=== PATIENT | female | born 1960 | race Caucasian/White ===

== ENCOUNTER 2020-12-22 07:52 | Emergency (ER) | payer MEDICARE, MEDICAID ==
[~2020-12-22] VITALS: Ht 162.6 cm; Wt 92.5 kg
[~2020-12-22 07:52] MED LIST: HYDR-826 PO
--- NOTE | 2020-12-22 08:09 | NUR ---
ERPA AT BEDSIDE FOR EVALUATION.
--- NOTE | 2020-12-22 08:15 | NUR ---
PATIENT WALKED BACK FROM TRIAGE WITH CHIEF C/O LOW BACK PAIN X2 WEEKS. PATIENT REPORTS PAIN RADIATES TO HER HIPS AND DOWN HER LEFT LEG. PATIENT REPORTS MUSCLE CRAMPS, WEAKNESS AND NUMBNESS IN HER LEFT LEG. PATIENT HAS LOWER BACK SURGERY 03/2019. MARTINA MONTGOMERY, CALL LIGHT WITHIN REACH.
[2020-12-22] MEDS ORDERED: HYDROmorphone 1 MG/ML, 1ML INJ ONE ×2 (08:23→10:30)
[2020-12-22] MEDS ORDERED: ONDANSETRON 2MG/ML, 2ML ONE (08:24)
[2020-12-22] MEDS ORDERED: SODIUM CHLORIDE FLUSH 10ML SYR IVF ONE (08:30)
[2020-12-22] MEDS ORDERED: ONDANSETRON 2MG/ML, 2ML IVPush ONE (08:30)
[2020-12-22] MEDS ORDERED: HYDROmorphone 1 MG/ML, 1ML INJ IV ONE ×2 (08:30→10:30)
--- NOTE | 2020-12-22 08:38 | NUR ---
22 GAUGE IV STARTED RIGHT AC, PATIENT MEDICATED PER eMAR.
--- NOTE | 2020-12-22 08:42 | NUR ---
PATIENT TO CT SCAN.
[2020-12-22] MEDS ORDERED: KETOROLAC 30 MG/1 ML ONE (09:14)
--- NOTE | 2020-12-22 09:28 | NUR ---
PATIENT MEDICATED PER eMAR, NADN, VSS, CALL LIGHT WITHIN REACH. WAITING FOR CT RESULTS.
[2020-12-22] MEDS ORDERED: KETOROLAC 30 MG/1 ML IVPush ONE (09:30)
--- NOTE | 2020-12-22 09:55 | NUR ---
ERPA AT BEDSIDE TO DISCUSS POC.
--- NOTE | 2020-12-22 10:15 | NUR ---
PATIENT AMBULATED TO BATHROOM WITH USE OF FRONT WHEEL WALKER AND CHECKER ASSISTANCE.
[2020-12-22 10:45] VITALS: BP 98/77
--- NOTE | 2020-12-22 10:46 | NUR ---
Patient given discharge instructions and prescription and they have confirmed that they understand the instructions. Patient stable and ambulatory with steady gait with use of front wheel walker to private vehicle, spouse driving.
== END 2020-12-22 10:23 | disposition home or self-care (01) ==
LOC: ED 09:35
DX: M51.16 Intervertebral disc disorders with radiculopathy, lumbar region (principal)
CPT/HCPCS: 72131; 96374; 96375; 96376; 99284; J1170; J1885; J2405

== ENCOUNTER 2020-12-27 07:26 | Emergency (ER) | payer MEDICARE, MEDICAID ==
[~2020-12-27] VITALS: Ht 160 cm; Wt 90.9 kg
--- NOTE | 2020-12-27 07:49 | NUR ---
Sherie mas in EDM - 12/27/20 at 0803 by WILMER PT AMBULATED TO BATHROOM, UPRIGHT STEADY GAIT. URINE SAMPLE COLLECTED AND SENT TO LAB. PT TOLLERATED ACTIVITY WELL, RTD TO ROOM W/O INCIDENT. VSS
--- NOTE | 2020-12-27 07:49 | NUR ---
PA AT BS. NAD NOTED. AT BS
[2020-12-27] MEDS ORDERED: ONDANSETRON 2MG/ML, 2ML IVPush ONE (08:00)
[2020-12-27] MEDS ORDERED: HYDROmorphone 1 MG/ML, 1ML INJ IV ONE (08:00)
[2020-12-27] MEDS ORDERED: SODIUM CHLORIDE FLUSH 10ML SYR IVF ONE (08:00)
[2020-12-27] MEDS ORDERED: ONDANSETRON 2MG/ML, 2ML ONE (08:09)
[2020-12-27] MEDS ORDERED: HYDROmorphone 1 MG/ML, 1ML INJ ONE ×2 (08:09→08:43)
[2020-12-27 08:30] LABS: BASOPHILS % (AUTO) 1 % (0-1); EOSINOPHILS % (AUTO) 2 % (1-7); LYMPHOCYTES % (AUTO) 31 % (22-44); MEAN CORPUSCULAR HEMOGLOBIN 32.9 pg (27.0-34.8); MEAN CORPUSCULAR HGB CONC 34.1 g/dL (32.4-35.8); MEAN PLATELET VOLUME 8.3 fL (7.4-10.4); MONOCYTES % (AUTO) 7 % (2-9); NEUTROPHILS % (AUTO) 59 % (42-75); PLATELET COUNT 283 x10^3/uL (130-400); RED BLOOD COUNT 4.89 x10^6/uL (3.82-5.3); RED CELL DISTRIBUTION WIDTH 14.5 % (9.6-15.2)
[2020-12-27 08:35] LABS: MD NO
[2020-12-27 08:42] LABS: ALANINE AMINOTRANSFERASE 26 U/L (12-78); ANION GAP 4 mmol/L (5-15); CALCIUM 8.9 mg/dL (8.5-10.1); CHLORIDE 105 mmol/L (98-107); CREATININE 0.94 mg/dL (0.55-1.02)
--- NOTE | 2020-12-27 08:42 | NUR ---
US IV ATTEMPT X 2, GOOD BLOOD RTN AND LABS DRAWN BUT NEITHER CATHETER WOUND ADVANCE INTO THE VEIN. DISCUSSED WITH CARLOS CHINCHILLA. PAIN MEDS CHANGED TO IM.
[2020-12-27] MEDS ORDERED: ONDANSETRON ODT 4 MG ONE (08:43)
[2020-12-27 08:44] LABS: ALKALINE PHOSPHATASE 85 U/L (45-117); BILIRUBIN,TOTAL 0.2 mg/dL (0.2-1.0); TOTAL PROTEIN 7.6 g/dL (6.4-8.2)
--- NOTE | 2020-12-27 08:44 | NUR ---
PT OOB TO BED SIDE COMMODE WITH MIN ASSIST. +VOID W/O DIFFICULTY AND RTD TO BED. CALL LIGHT W/I REACH.
--- NOTE | 2020-12-27 08:56 | NUR ---
PT TO MRI
[2020-12-27] MEDS ORDERED: HYDROmorphone 1 MG/ML, 1ML INJ IM ONE (09:00)
[2020-12-27] MEDS ORDERED: ONDANSETRON ODT 4 MG PO ONE (09:00)
--- NOTE | 2020-12-27 09:38 | NUR ---
PT BACK FROM MRI
--- NOTE | 2020-12-27 10:25 | NUR ---
ATTEMPTED TO CALL [facility], NO ANSWER, MESSAGE LEFT. DR DESAI INFORMED
--- NOTE | 2020-12-27 10:45 | NUR ---
DISCUSSED NEED FOR HOME HEALTH WITH KELLY JOSHI. KELLY TO SET UP AND WILL TALK WITH PT.
[2020-12-27 10:53] VITALS: BP 142/60
--- NOTE | 2020-12-27 10:55 | NUR ---
Patient/Caregiver given discharge instructions and they have confirmed that they understand the instructions. Patient ambulatory to wheelchair for discharge
== END 2020-12-27 10:56 | disposition home or self-care (01) ==
LOC: ED 07:43
DX: M51.36 Other intervertebral disc degeneration, lumbar region (principal); M54.16 Radiculopathy, lumbar region; G89.29 Other chronic pain
CPT/HCPCS: 36415; 72148; 80053; 85025; 96372; 99284; J1170; Q0162

== ENCOUNTER → 2021-01-24 | Outpatient (CLI) | payer MEDICARE, MEDICAID ==
[~2021-01-24] MED LIST changes: +ALPR1TAB2 PO; +LEVO25CA4 PO
== END | disposition home or self-care (01) ==
LOC: RAD 14:55
PROVIDERS: ATTEND Neurological Surgery
DX: M47.24 Other spondylosis with radiculopathy, thoracic region (principal)
CPT/HCPCS: 72146

== ENCOUNTER 2021-01-26 14:07 | Inpatient (IN) | payer MEDICARE, MEDICAID ==
[~2021-01-26] VITALS: Ht 160 cm; Wt 87.0 kg
[~2021-01-26 14:07] MED LIST changes: -LEVO25CA4 PO
--- NOTE | 2021-01-26 14:30 | NUR ---
Sent by Dr. Munson and Dr. Sargent for left low back and left leg pain, reports numbness and tingling for 7 weeks. Hx spinal fusion 2018.
--- NOTE | 2021-01-26 15:11 | NUR ---
REPORT RECIEVED FROM TREE HALLMAN
--- NOTE | 2021-01-26 15:20 | NUR ---
pt states 7/10 pain in pelvis and top of femur along with numbness at umbilicus. pt a&o, resps even and unlabored, cooperative and can speak in complete sentences.
[2021-01-26] MEDS ORDERED: FENTANYL PF 100 MCG/2ML IVPush ONE (16:04)
--- NOTE | 2021-01-26 16:06 | NUR ---
preceptor RN note: pt requesting pain medication prior to any additional imaging, MD Salcido notified. awaiting further orders.
[2021-01-26] MEDS ORDERED: FENTANYL PF 100 MCG/2ML ONE (16:16)
--- NOTE | 2021-01-26 16:45 | NUR ---
PRECEPTOR RN NOTE: XRAY CALLED TO COLLECT PT PT HAS BEEN MEDICATED FOR PAIN AND CONSENTS TO IMAGING.
--- NOTE | 2021-01-26 17:20 | NUR ---
IMAGING DELAYED D/T PT REQ FOR PAIN MEDICATION, THEN REQ TO AMBULATE TO BATHROOM UPON RADIOLOGY RETURN. PT AMBULATED TO BATHROOM WITH WALKER AND RN STANDBY ASSIST. PT NOW BACK IN BED, BP AND SPO2 MONITORS IN PLACE. PT REPORTS PAIN IMRPOVED S/P FENTANYL. PT A &O, RESPS EVEN AND UNLABORED. RADIOLOGY NOTIFIED TO COLLECT PT.
--- NOTE | 2021-01-26 17:33 | NUR ---
pt back from xray
--- NOTE | 2021-01-26 17:45 | NUR ---
pt states current pain level 6/10, tolerable. a&o x 4, resps even and unlabored, bp and spo2 monitors in place. nadn. pt upated with poc, agreeable to admit.
--- NOTE | 2021-01-26 17:55 | NUR ---
REPORT GIVEN TO VIANEY HALLMAN IN 628
--- NOTE | 2021-01-26 19:02 | NUR ---
PT A&O, RESPS EVEN AND UNLABORED. PT TRANSPORTED UP TO FLOOR WITHOUT INCIDENT. UPDATED WITH POC.
[2021-01-26 19:07] VITALS: BP 127/75
[2021-01-26] MEDS ORDERED: LEVO25CA4 PO (19:30)
[2021-01-26] MEDS ORDERED: DOCUSATE 100 MG CAPSULE PO PRN (21:00)
[2021-01-26] MEDS ORDERED: MELATONIN 5 MG TABLET PO PRN (21:00)
[2021-01-26] MEDS ORDERED: NICOTINE 21 MG/24 HR PATCH.TD24 TD ONE (21:00)
[2021-01-26] MEDS: OXYcodone/APAP 5/325MG TABLET PO PRN (21:35)
[2021-01-26] MEDS: KETOROLAC 30 MG/1 ML IV PRN (21:35)
[2021-01-26] MEDS: ENOXAPARIN 40 MG/0.4 ML SQ SCH (21:36)
[2021-01-27] MEDS: TEMAZEPAM 15 MG CAPSULE PO PRN (00:36)
[2021-01-27 01:00] VITALS: BP 93/64
[2021-01-27] MEDS: OXYcodone/APAP 5/325MG TABLET PO PRN ×5 (02:45→20:57)
[2021-01-27] MEDS: LIDODERM 5% PATCH TD PRN ×2 (02:46→21:03)
[2021-01-27] MEDS: KETOROLAC 30 MG/1 ML IV PRN ×3 (05:59→20:57)
[2021-01-27 06:01] LABS: BASOPHILS % (AUTO) 1 % (0-1); EOSINOPHILS % (AUTO) 4 % (1-7); LYMPHOCYTES % (AUTO) 40 % (22-44); MEAN CORPUSCULAR HEMOGLOBIN 32.7 pg (27.0-34.8); MEAN CORPUSCULAR HGB CONC 33.8 g/dL (32.4-35.8); MEAN PLATELET VOLUME 8.3 fL (7.4-10.4); MONOCYTES % (AUTO) 7 % (2-9); NEUTROPHILS % (AUTO) 48 % (42-75); PLATELET COUNT 239 x10^3/uL (130-400); RED BLOOD COUNT 4.69 x10^6/uL (3.82-5.3); RED CELL DISTRIBUTION WIDTH 14.4 % (9.6-15.2)
[2021-01-27 06:02] LABS: ANION GAP 8 mmol/L (5-15); CALCIUM 8.7 mg/dL (8.5-10.1); CHLORIDE 110 mmol/L (98-107); CREATININE 0.76 mg/dL (0.55-1.02)
[2021-01-27 06:05] LABS: MD NO
[2021-01-27 06:50] VITALS: BP 106/70
[2021-01-27] MEDS ORDERED: ONDANSETRON 2MG/ML, 2ML ONE (12:47)
[2021-01-27] MEDS: ONDANSETRON 2MG/ML, 2ML IVPush PRN (12:50)
[2021-01-27] MEDS ORDERED: ONDANSETRON 4 MG TABLET PO PRN (13:00)
[2021-01-27] MEDS ORDERED: BISACODYL 10 MG SUPP PR PRN (13:30)
[2021-01-27 14:45] VITALS: BP 144/76
[2021-01-27] MEDS: GABAPENTIN 100 MG CAPSULE PO SCH ×2 (15:12→20:56)
[2021-01-27 17:19] LABS: OCCULT BLOOD NEGATIVE (NEGATIVE)
[2021-01-27 20:51] VITALS: BP 137/84
[2021-01-27] MEDS: SENNOSIDES 8.6 MG TABLET PO SCH (20:57)
[2021-01-27] MEDS: ENOXAPARIN 40 MG/0.4 ML SQ SCH (21:02)
[2021-01-27] MEDS: NICOTINE 21 MG/24 HR PATCH.TD24 TD SCH (21:03)
[2021-01-28 00:03] VITALS: BP 125/82
[2021-01-28] MEDS: OXYcodone/APAP 5/325MG TABLET PO PRN ×5 (01:28→18:39)
[2021-01-28] MEDS: KETOROLAC 30 MG/1 ML IV PRN ×4 (03:29→23:01)
[2021-01-28] MEDS: GABAPENTIN 100 MG CAPSULE PO SCH ×3 (07:23→21:06)
[2021-01-28 08:00] VITALS: BP 118/89
[2021-01-28] MEDS: NICOTINE 21 MG/24 HR PATCH.TD24 TD SCH (11:27)
[2021-01-28] MEDS ORDERED: GABA-826 PO (12:55)
[2021-01-28] MEDS ORDERED: SENN-99 PO (12:55)
[2021-01-28] MEDS ORDERED: LIDO700A20 TD (12:55)
[2021-01-28] MEDS ORDERED: NICO-587 TD (12:55)
[2021-01-28 12:58] VITALS: BP 132/76
[2021-01-28 13:28] VITALS: BP 112/66
[2021-01-28 19:33] VITALS: BP 133/89
[2021-01-28] MEDS: SENNOSIDES 8.6 MG TABLET PO SCH (21:06)
[2021-01-28] MEDS: ENOXAPARIN 40 MG/0.4 ML SQ SCH (21:06)
[2021-01-28] MEDS: ONDANSETRON 2MG/ML, 2ML IVPush PRN (21:08)
[2021-01-28] MEDS: TEMAZEPAM 15 MG CAPSULE PO PRN (23:04)
[2021-01-29 02:46] VITALS: BP 109/71
[2021-01-29] MEDS: OXYcodone/APAP 5/325MG TABLET PO PRN ×3 (04:34→15:27)
[2021-01-29 07:25] VITALS: BP 164/72
[2021-01-29] MEDS: GABAPENTIN 100 MG CAPSULE PO SCH ×2 (08:12→15:27)
[2021-01-29] MEDS: KETOROLAC 30 MG/1 ML IV PRN ×2 (08:12→13:59)
[2021-01-29] MEDS: LIDODERM 5% PATCH TD PRN (08:13)
[2021-01-29] MEDS: NICOTINE 21 MG/24 HR PATCH.TD24 TD SCH (11:27)
[2021-01-29] MEDS: ONDANSETRON 2MG/ML, 2ML IVPush PRN (13:48)
[2021-01-29 14:01] VITALS: BP 138/55
[2021-01-29] MEDS ORDERED: OXYC-302 PO (15:49)
== END 2021-01-29 16:08 | DRG 552 ==
LOC: ED 17:05 → EDIP 17:10 → ED 17:18 → 4NE 19:02
PROVIDERS: ADMIT Internal Medicine; ATTEND Internal Medicine
DX: M54.16 Radiculopathy, lumbar region (principal); F11.20 Opioid dependence, uncomplicated; M79.7 Fibromyalgia; E66.9 Obesity, unspecified; E03.9 Hypothyroidism, unspecified; F40.240 Claustrophobia; R29.6 Repeated falls; G89.11 Acute pain due to trauma; M25.552 Pain in left hip; G47.00 Insomnia, unspecified; G89.4 Chronic pain syndrome; F12.90 Cannabis use, unspecified, uncomplicated; M54.14 Radiculopathy, thoracic region; R53.82 Chronic fatigue, unspecified; G43.909 Migraine, unspecified, not intractable, without status migrainosus; F17.210 Nicotine dependence, cigarettes, uncomplicated; Z88.0 Allergy status to penicillin; Z82.49 Family history of ischemic heart disease and other diseases of the circulatory system; Z88.1 Allergy status to other antibiotic agents; Z75.1 Person awaiting admission to adequate facility elsewhere; Z98.1 Arthrodesis status; Z83.6 Family history of other diseases of the respiratory system; Z71.6 Tobacco abuse counseling; Z68.34 Body mass index [BMI] 34.0-34.9, adult
CPT/HCPCS: 36415; 72190; 80048; 82272; 82607; 84443; 85025; 99285; G0378; J1650; J1885; J2405; J3010; Q0162